=== PATIENT | female | born 1980 | race Caucasian/White ===

== ENCOUNTER 2022-06-06 09:02 | Emergency (ER) | payer SELFPAY ==
[~2022-06-06] VITALS: Ht 152.4 cm; Wt 62.1 kg
[2022-06-06] MEDS ORDERED: TRADJENTA5 MG (09:39)
[2022-06-06] MEDS ORDERED: LIPITOR20 MG PO (09:39)
[2022-06-06] MEDS ORDERED: METFORMIN HCL500 MG PO (09:39)
[2022-06-06] MEDS ORDERED: ACETAMINOPHEN 325 MG TAB ONE (09:49)
[2022-06-06] MEDS ORDERED: ONDANSETRON HCL 4 MG ORAL DISINTEGRATING TAB ONE (09:50)
[2022-06-06] MEDS ORDERED: SODIUM CHLORIDE 0.9% 1000ML 1,000 ML ONE (10:09)
[2022-06-06] MEDS ORDERED: IOPAMIDOL 370 MG/ML 100 ML INFUS..BTL INJ ONE (10:19)
[2022-06-06] MEDS ORDERED: CEFTRIAXONE 1 GM VIAL ONE (10:27)
[2022-06-06] MEDS ORDERED: ACETAMINOPHEN 325 MG TAB PO ONE (10:30)
[2022-06-06] MEDS ORDERED: SODIUM CHLORIDE 0.9% 1000ML 1,000 ML IV ONE (10:30)
[2022-06-06] MEDS ORDERED: ONDANSETRON HCL 4 MG ORAL DISINTEGRATING TAB PO ONE (10:30)
[2022-06-06] MEDS ORDERED: ONDANSETRON ODT4 MG PO (11:33)
[2022-06-06] MEDS ORDERED: CEFDINIR300 MG PO (11:33)
== END 2022-06-06 11:47 | disposition home or self-care (01) ==
LOC: FSED 09:22
DX: R50.9 Fever, unspecified (principal); J02.0 Streptococcal pharyngitis; N30.90 Cystitis, unspecified without hematuria; R11.2 Nausea with vomiting, unspecified; E86.0 Dehydration; E11.65 Type 2 diabetes mellitus with hyperglycemia; E78.5 Hyperlipidemia, unspecified; D72.829 Elevated white blood cell count, unspecified; K42.9 Umbilical hernia without obstruction or gangrene; R51.9 Headache, unspecified
CPT/HCPCS: 36415; 71046; 74177; 80053; 80076; 81003; 81025; 82948; 83518; 85025; 87400; 99284; J0696; J7030; Q0162; Q9967